=== PATIENT | male | born 1985 | race African-American/Black ===

== ENCOUNTER 2017-09-19 11:53 | Emergency (ER) | payer SELFPAY ==
[2017-09-19] MEDS ORDERED: Ibuprofen 200 MG TAB ONE (12:50)
== END 2017-09-19 13:35 | disposition home or self-care (01) ==
LOC: ERS 11:53
DX: J02.9 Acute pharyngitis, unspecified (principal); F41.9 Anxiety disorder, unspecified; F90.9 Attention-deficit hyperactivity disorder, unspecified type
CPT/HCPCS: 87081; 87430; 99283